=== PATIENT | male | born 1945 | race American Indian/Alaskan Native ===

== ENCOUNTER → 2021-07-01 | Outpatient (CLI) | payer MEDICARE ==
[~2021-07-01] MED LIST: ALBU90OI INH; ASPI325EC PO; ATOR80 PO; CARV3.125 PO; DIPH50 PO; DOCU100 PO; FURO40 PO; HYDACE7.5 PO; MULVITMIND PO; OMEP20ER PO; PANT40 PO; POTCHL20ER PO; PROACE100 PO; PROM25 PO; SUCR1 PO
== END | disposition home or self-care (01) ==
LOC: LAB 14:15 → LAB SHORT 14:15
DX: I50.22 Chronic systolic (congestive) heart failure (principal); E11.22 Type 2 diabetes mellitus with diabetic chronic kidney disease; N18.30 Chronic kidney disease, stage 3 unspecified
CPT/HCPCS: 84550